=== PATIENT | female | born 1995 | race Caucasian/White ===

== ENCOUNTER 2017-08-14 04:19 | Emergency (ER) | payer OTHER ==
[2017-08-14 06:30] LABS: ADD MAN DIFF? NO
[2017-08-14 06:33] LABS: WHITE BLOOD COUNT 11.5 10^3/ul (4.8-10.8)
[2017-08-14 06:33] LABS: BASOPHILS % 0.3 % (0.0-2.0); EOSINOPHILS # 0.2 10^3/ul (0.0-0.5); EOSINOPHILS % 1.6 % (0.0-7.0); HEMATOCRIT 36.5 % (37.0-47.0); HEMOGLOBIN 11.7 g/dl (12.0-16.0); LYMPHOCYTES # 3.2 10^3/ul (0.8-2.9); LYMPHOCYTES % 27.7 % (18.0-55.0); MEAN CORPUSCULAR HEMOGLOBIN 25.4 pg (29.0-33.0); MEAN CORPUSCULAR HGB CONC 32.1 g/dl (32.0-37.0); MEAN CORPUSCULAR VOLUME 79.3 fl (72.0-104.0); MEAN PLATELET VOLUME 8.9 fl (7.4-10.4); MONOCYTE # 0.6 10^3/ul (0.3-0.9); NEUTROPHIL # 7.5 10^3/ul (1.6-7.5); NEUTROPHILS % 65.1 % (30.0-74.0); PLATELET COUNT 460 10^3/UL (140-415); RED CELL DISTRIBUTION WIDTH 15.7 % (11.5-14.5)
[2017-08-14 06:38] LABS: URINE BLOOD (Dip) POC Negative (NEGATIVE); URINE GLUCOSE (Dip) POC Negative (NEGATIVE); URINE KETONES (Dip) POC Negative (NEGATIVE); URINE LEUKOCYTE EST (Dip) POC Negative (NEGATIVE); URINE NITRITE (Dip) POC Negative (NEGATIVE); URINE TOTAL PROTEIN POC Negative (NEGATIVE)
[2017-08-14 06:41] LABS: ALANINE AMINOTRANSFERASE 30 IU/L (13-69); ALBUMIN 4.3 g/dl (3.3-4.9); ALBUMIN/GLOBULIN RATIO 1.02; ALKALINE PHOSPHATASE 109 IU/L (42-121); ANION GAP 16 (8-16); ASPARTATE AMINO TRANSFERASE 21 IU/L (15-46); BILIRUBIN,INDIRECT 0.2 mg/dl (0-1.1); BILIRUBIN,TOTAL 0.2 mg/dl (0.2-1.3); BLOOD UREA NITROGEN 13 mg/dl (7-20); CALCIUM 9.3 mg/dl (8.4-10.2); CARBON DIOXIDE 24 mmol/L (21-31); CHLORIDE 106 mmol/L (97-110); CREATININE 0.54 mg/dl (0.44-1.00); GLUCOSE 95 mg/dl (70-220); LIPASE 141 U/L (23-300); POTASSIUM 4.3 mmol/L (3.5-5.1); SODIUM 142 mmol/L (135-144); TOTAL PROTEIN 8.5 g/dl (6.1-8.1)
[2017-08-14] MEDS: ONDANSETRON 4 MG INJ IV (06:56)
[2017-08-14] MEDS: morphine 4 MG/ML VIAL IV (06:57)
[2017-08-14] MEDS: SOD CHLORIDE 0.9% 1,000 ML IV (06:58)
== END 2017-08-14 08:42 | disposition home or self-care (01) ==
LOC: E/R 08:42
DX: K80.70 Calculus of gallbladder and bile duct without cholecystitis without obstruction (principal); R40.2142 Coma scale, eyes open, spontaneous, at arrival to emergency department; R40.2252 Coma scale, best verbal response, oriented, at arrival to emergency department; R40.2362 Coma scale, best motor response, obeys commands, at arrival to emergency department
CPT/HCPCS: 36415; 76705; 80053; 81003; 81025; 83690; 85025; 96374; 96375; 99285-25

== ENCOUNTER 2017-09-04 22:50 | Emergency (ER) | payer OTHER ==
[2017-09-05 00:56] LABS: ADD MAN DIFF? NO
[2017-09-05 01:02] LABS: WHITE BLOOD COUNT 10.6 10^3/ul (4.8-10.8)
[2017-09-05 01:02] LABS: BASOPHILS % 0.3 % (0.0-2.0); EOSINOPHILS # 0.2 10^3/ul (0.0-0.5); EOSINOPHILS % 1.4 % (0.0-7.0); HEMATOCRIT 37.2 % (37.0-47.0); HEMOGLOBIN 11.4 g/dl (12.0-16.0); LYMPHOCYTES # 3.2 10^3/ul (0.8-2.9); LYMPHOCYTES % 29.8 % (18.0-55.0); MEAN CORPUSCULAR HEMOGLOBIN 24.7 pg (29.0-33.0); MEAN CORPUSCULAR HGB CONC 30.6 g/dl (32.0-37.0); MEAN CORPUSCULAR VOLUME 80.7 fl (72.0-104.0); MEAN PLATELET VOLUME 9.2 fl (7.4-10.4); MONOCYTE # 0.5 10^3/ul (0.3-0.9); MONOCYTES % 4.5 % (0.0-13.0); NEUTROPHIL # 6.8 10^3/ul (1.6-7.5); NEUTROPHILS % 63.6 % (30.0-74.0); PLATELET COUNT 486 10^3/UL (140-415); RED BLOOD COUNT 4.61 10^6/ul (4.20-5.40)
[2017-09-05 01:06] LABS: ADD UMIC NO; UR ASCORBIC ACID NEGATIVE (NEGATIVE); UR BILIRUBIN (Dip) NEGATIVE (NEGATIVE); UR BLOOD (Dip) NEGATIVE (NEGATIVE); UR CLARITY CLEAR (CLEAR); UR COLOR YELLOW (YELLOW); UR GLUCOSE (Dip) NEGATIVE (NEGATIVE); UR KETONES (Dip) NEGATIVE (NEGATIVE); UR LEUKOCYTE ESTERASE (Dip) NEGATIVE Leu/ul (NEGATIVE); UR NITRITE (Dip) NEGATIVE (NEGATIVE); UR SPECIFIC GRAVITY (Dip) 1.024 (1.003-1.030); UR TOTAL PROTEIN (Dip) NEGATIVE (NEGATIVE); UR UROBILINOGEN (Dip) NEGATIVE (NEGATIVE)
[2017-09-05 01:21] LABS: ALANINE AMINOTRANSFERASE 22 IU/L (13-69); ALBUMIN 4.4 g/dl (3.3-4.9); ALBUMIN/GLOBULIN RATIO 1.12; ALKALINE PHOSPHATASE 107 IU/L (42-121); ANION GAP 17 (8-16); ASPARTATE AMINO TRANSFERASE 22 IU/L (15-46); BILIRUBIN,INDIRECT 0.2 mg/dl (0-1.1); BILIRUBIN,TOTAL 0.2 mg/dl (0.2-1.3); BLOOD UREA NITROGEN 10 mg/dl (7-20); CALCIUM 9.4 mg/dl (8.4-10.2); CARBON DIOXIDE 26 mmol/L (21-31); CHLORIDE 107 mmol/L (97-110); CREATININE 0.55 mg/dl (0.44-1.00); GLUCOSE 119 mg/dl (70-220); LIPASE 108 U/L (23-300); POTASSIUM 4.1 mmol/L (3.5-5.1); SODIUM 146 mmol/L (135-144); TOTAL PROTEIN 8.3 g/dl (6.1-8.1)
[2017-09-05] MEDS: ONDANSETRON (ODT) 4 MG TAB ODT (02:43)
[2017-09-05] MEDS: HYDROCODONE/APAP (5/325) TAB PO (02:43)
== END 2017-09-05 03:15 | disposition home or self-care (01) ==
LOC: FTE 09-05 03:15
DX: K80.20 Calculus of gallbladder without cholecystitis without obstruction (principal)
CPT/HCPCS: 36415; 76705; 80053; 81003; 83690; 85025; 99284-25

== ENCOUNTER 2017-10-15 09:56 | Emergency (ER) | payer OTHER | END 2017-10-15 12:04 | disposition home or self-care (01) | LOC: FTE 09:56 | DX: J02.9 Acute pharyngitis, unspecified (principal) | CPT/HCPCS: 87880; 99283 ==

== ENCOUNTER 2017-11-04 06:08 | Day surgery (SDC) | payer OTHER ==
[~2017-11-04 06:08] MED LIST: CEFAZOLIN 2 GM/50 ML (PMX) 50 ML IVPB; SOD CHLORIDE 0.9% 1,000 ML IV
[2017-11-04] MEDS ORDERED: PROPOFOL 20 ML (08:43)
[2017-11-04] MEDS ORDERED: GLYCOPYRROLATE 0.4 MG INJ ×3 (08:43→09:39)
[2017-11-04] MEDS ORDERED: ROCURONIUM 50 MG INJ (08:43)
[2017-11-04] MEDS ORDERED: SUCCINYLCHOLINE CHLORIDE 100 MG/5 ML SYG IV (08:43)
[2017-11-04] MEDS ORDERED: MEPERIDINE 100 MG INJ (08:43)
[2017-11-04] MEDS ORDERED: LIDOCAINE 2% (SDV) 5 ML INJ (08:43)
[2017-11-04] MEDS ORDERED: NEOSTIGMINE 3 MG/3 ML SYRINGE ×2 (08:43→09:39)
[2017-11-04] MEDS ORDERED: ONDANSETRON 4 MG INJ (09:31)
[2017-11-04] MEDS ORDERED: CEFAZOLIN 1 GM INJ (09:31)
[2017-11-04] MEDS ORDERED: METOCLOPRAMIDE 10 MG INJ (09:31)
[2017-11-04] MEDS: BUPIVACAINE 0.25% (MPF) 30 ML INJ (09:32)
[2017-11-04] MEDS ORDERED: HYDROCODONE/APAP (5/325) TAB PO (10:00)
[2017-11-04] MEDS ORDERED: HYDROmorphONE 1 MG/5 ML IV SYRINGE IV ×3 (10:12→10:30)
[2017-11-04] MEDS: HYDROmorphONE 1 MG/5 ML IV SYRINGE IV (10:18)
[2017-11-04] MEDS ORDERED: METOCLOPRAMIDE 10 MG INJ IV (10:30)
[2017-11-04] MEDS ORDERED: MEPERIDINE 25 MG INJ IV (10:30)
[2017-11-04] MEDS ORDERED: MIDAZOLAM 1 MG/ML 2 ML INJ IV (10:30)
[2017-11-04] MEDS ORDERED: EPHEDrine SULFATE 50 MG/5 ML SYG IV (10:30)
[2017-11-04] MEDS ORDERED: hydrALAzine 20 MG INJ IV (10:30)
[2017-11-04] MEDS ORDERED: ONDANSETRON 4 MG INJ IV (10:30)
[2017-11-04] MEDS ORDERED: FENTAnyl 50 MCG/ML VIAL IV ×3 (10:30)
[2017-11-04] MEDS ORDERED: DIPHENHYDRAMINE 50 MG INJ IV (10:30)
[2017-11-04] MEDS ORDERED: LABETALOL HCL 20MG INJ IV (10:30)
[2017-11-04] MEDS ORDERED: OXYCODONE/ACETAMINOPHEN (5/325) TAB PO (10:30)
[2017-11-04] MEDS: OXYCODONE/ACETAMINOPHEN (5/325) TAB PO (11:36)
== END 2017-11-04 12:30 | disposition home or self-care (01) ==
LOC: SDS 06:08
DX: K80.10 Calculus of gallbladder with chronic cholecystitis without obstruction (principal)
CPT/HCPCS: 47562; 84703; 88304

== ENCOUNTER 2017-11-13 00:27 | Emergency (ER) | payer OTHER | END 2017-11-13 01:35 | disposition home or self-care (01) | LOC: FTE 00:27 | DX: G89.18 Other acute postprocedural pain (principal) | CPT/HCPCS: 99282; Z7502 ==

== ENCOUNTER 2017-12-08 22:17 | Emergency (ER) | payer OTHER ==
[2017-12-08 23:42] LABS: URINE BLOOD (Dip) POC Negative (NEGATIVE); URINE GLUCOSE (Dip) POC Negative (NEGATIVE); URINE KETONES (Dip) POC Negative (NEGATIVE); URINE LEUKOCYTE EST (Dip) POC Negative (NEGATIVE); URINE NITRITE (Dip) POC Negative (NEGATIVE); URINE TOTAL PROTEIN POC Negative (NEGATIVE)
[2017-12-08 23:56] LABS: ADD UMIC NO; UR ASCORBIC ACID NEGATIVE (NEGATIVE); UR BILIRUBIN (Dip) NEGATIVE (NEGATIVE); UR BLOOD (Dip) NEGATIVE (NEGATIVE); UR CLARITY CLEAR (CLEAR); UR COLOR STRAW (YELLOW); UR GLUCOSE (Dip) NEGATIVE (NEGATIVE); UR KETONES (Dip) NEGATIVE (NEGATIVE); UR LEUKOCYTE ESTERASE (Dip) NEGATIVE Leu/ul (NEGATIVE); UR NITRITE (Dip) NEGATIVE (NEGATIVE); UR SPECIFIC GRAVITY (Dip) 1.009 (1.003-1.030); UR TOTAL PROTEIN (Dip) NEGATIVE (NEGATIVE); UR UROBILINOGEN (Dip) NEGATIVE (NEGATIVE)
== END 2017-12-09 01:59 | disposition home or self-care (01) ==
LOC: FTE 12-09 01:59
DX: N83.202 Unspecified ovarian cyst, left side (principal); R10.2 Pelvic and perineal pain
CPT/HCPCS: 76856; 81003; 81025; 99284-25

== ENCOUNTER 2018-01-14 13:14 | Emergency (ER) | payer OTHER | END 2018-01-14 16:14 | disposition home or self-care (01) | LOC: FTE 13:14 | DX: J03.90 Acute tonsillitis, unspecified (principal); J02.8 Acute pharyngitis due to other specified organisms; B96.89 Other specified bacterial agents as the cause of diseases classified elsewhere | CPT/HCPCS: 99283; Z7502 ==

== ENCOUNTER 2018-07-09 18:45 | Emergency (ER) | payer OTHER ==
[2018-07-09 20:42] LABS: ADD MAN DIFF? NO
[2018-07-09 20:43] LABS: BASOPHIL # 0.1 10^3/ul (0.0-0.1); BASOPHILS % 0.5 % (0.0-2.0); EOSINOPHILS # 0.1 10^3/ul (0.0-0.5); HEMATOCRIT 37.7 % (37.0-47.0); HEMOGLOBIN 11.6 g/dl (12.0-16.0); LYMPHOCYTES # 3.1 10^3/ul (0.8-2.9); LYMPHOCYTES % 28.5 % (18.0-55.0); MEAN CORPUSCULAR HEMOGLOBIN 25.2 pg (29.0-33.0); MEAN CORPUSCULAR HGB CONC 30.8 g/dl (32.0-37.0); MEAN PLATELET VOLUME 8.9 fl (7.4-10.4); MONOCYTE # 0.6 10^3/ul (0.3-0.9); MONOCYTES % 5.3 % (0.0-13.0); NEUTROPHILS % 64.4 % (30.0-74.0); PLATELET COUNT 463 10^3/UL (140-415); RED CELL DISTRIBUTION WIDTH 16.1 % (11.5-14.5)
[2018-07-09 20:43] LABS: WHITE BLOOD COUNT 10.9 10^3/ul (4.8-10.8)
[2018-07-09 20:49] LABS: ANION GAP 8 (5-13); BLOOD UREA NITROGEN 9 mg/dl (7-20); CALCIUM 9.3 mg/dl (8.4-10.2); CARBON DIOXIDE 29 mmol/L (21-31); CHLORIDE 104 mmol/L (97-110); CREATININE 0.54 mg/dl (0.44-1.00); Estimated GFR > 60 mL/min (>60); GLUCOSE 82 mg/dl (70-220); POTASSIUM 3.7 mmol/L (3.5-5.1); SODIUM 141 mmol/L (135-144)
== END 2018-07-09 21:30 | disposition home or self-care (01) ==
LOC: E/R 18:45
DX: J95.830 Postprocedural hemorrhage of a respiratory system organ or structure following a respiratory system procedure (principal); G89.18 Other acute postprocedural pain
CPT/HCPCS: 36415; 80048; 85025; 99283

== ENCOUNTER 2018-07-11 18:21 | Day surgery (SDC) | payer OTHER ==
[2018-07-11] MEDS: SOD CHLORIDE 0.9% 1,000 ML IV (21:48)
[2018-07-11 21:49] LABS: ADD MAN DIFF? NO
[2018-07-11 21:51] LABS: WHITE BLOOD COUNT 13.3 10^3/ul (4.8-10.8)
[2018-07-11 21:51] LABS: BASOPHILS % 0.2 % (0.0-2.0); EOSINOPHILS # 0.1 10^3/ul (0.0-0.5); HEMATOCRIT 36.2 % (37.0-47.0); HEMOGLOBIN 11.3 g/dl (12.0-16.0); LYMPHOCYTES # 3.6 10^3/ul (0.8-2.9); LYMPHOCYTES % 26.8 % (18.0-55.0); MEAN CORPUSCULAR HEMOGLOBIN 25.5 pg (29.0-33.0); MEAN CORPUSCULAR HGB CONC 31.2 g/dl (32.0-37.0); MEAN CORPUSCULAR VOLUME 81.7 fl (72.0-104.0); MEAN PLATELET VOLUME 8.8 fl (7.4-10.4); MONOCYTE # 0.6 10^3/ul (0.3-0.9); MONOCYTES % 4.7 % (0.0-13.0); NEUTROPHIL # 8.9 10^3/ul (1.6-7.5); NEUTROPHILS % 67.1 % (30.0-74.0); PLATELET COUNT 456 10^3/UL (140-415); RED BLOOD COUNT 4.43 10^6/ul (4.20-5.40); RED CELL DISTRIBUTION WIDTH 15.9 % (11.5-14.5)
[2018-07-11] MEDS ORDERED: DESFLURANE 15 MIN (22:00)
[2018-07-11] MEDS ORDERED: HYDROmorphONE 1 MG/5 ML IV SYRINGE IV ×3 (22:00→23:00)
[2018-07-11] MEDS ORDERED: FENTAnyl 50 MCG/ML VIAL IV ×3 (22:00)
[2018-07-11] MEDS ORDERED: PROPOFOL 20 ML (22:04)
[2018-07-11] MEDS ORDERED: MIDAZOLAM 1 MG/ML 2 ML INJ (22:04)
[2018-07-11] MEDS ORDERED: SUCCINYLCHOLINE CHLORIDE 100 MG/5 ML SYG IV (22:04)
[2018-07-11] MEDS ORDERED: ONDANSETRON 4 MG INJ ×2 (22:04→23:00)
[2018-07-11] MEDS ORDERED: METOCLOPRAMIDE 10 MG INJ (22:04)
[2018-07-11 22:10] LABS: ANION GAP 10 (5-13); BLOOD UREA NITROGEN 14 mg/dl (7-20); CALCIUM 9.4 mg/dl (8.4-10.2); CARBON DIOXIDE 26 mmol/L (21-31); CHLORIDE 104 mmol/L (97-110); CREATININE 0.53 mg/dl (0.44-1.00); Estimated GFR > 60 mL/min (>60); GLUCOSE 96 mg/dl (70-220); POTASSIUM 4.1 mmol/L (3.5-5.1); SODIUM 140 mmol/L (135-144)
[2018-07-11 22:12] LABS: INR 0.93; PROTIME 12.6 Sec (11.9-14.9)
[2018-07-11 22:13] LABS: PARTIAL THROMBOPLASTIN TIME 32.6 Sec (23.0-35.0)
[2018-07-11] MEDS ORDERED: FENTAnyl 50 MCG/ML VIAL (22:14)
[2018-07-11] MEDS: HYDROmorphONE 1 MG/5 ML IV SYRINGE IV (23:22)
[2018-07-11] MEDS: ONDANSETRON 4 MG INJ IV (23:23)
== END 2018-07-12 00:04 | disposition home or self-care (01) ==
LOC: SDS 22:00 → FTE 18:21
DX: J95.830 Postprocedural hemorrhage of a respiratory system organ or structure following a respiratory system procedure (principal); Y83.8 Other surgical procedures as the cause of abnormal reaction of the patient, or of later complication, without mention of misadventure at the time of the procedure
CPT/HCPCS: 36415; 80048; 81025; 85025; 85610; 85730; 96374; 96375; 99284-25